=== PATIENT | male | born 1950 | race Caucasian/White ===

== ENCOUNTER 2021-10-21 18:18 | Inpatient (IN) ==
[2021-10-21] MEDS ORDERED: HYDROmorphone 2 MG/1 ML VIAL IV STA (18:46)
[2021-10-21] MEDS ORDERED: SODIUM CHLORIDE 0.9% 1,000 ML IV STA (18:46)
[2021-10-21] MEDS ORDERED: ONDANSETRON 4 MG/2 ML VIAL IV PRN (22:53)
[2021-10-22 00:27] LABS: Calcium 8.6 MG/DL (8.5-10.1); Osmolality,Calculated 280.5 MOS/KG (273-304); Potassium 4.2 MMOL/L (3.5-5.1)
[2021-10-22 00:51] LABS: Basophils % 0.2 % (0.0-0.8); Eosinophils % 0.2 % (0.00-10.9); Hematocrit 41.7 VOL% (42.0-52.0); Hemoglobin 14.1 GM/DL (14.0-18.0); Immature Granulocytes % 0.4 %; Immature Granulocytes Absolute 0.05 #; Lymphocytes # 1.4 10*3/uL (1.4-4.0); Lymphocytes % 11.3 % (21.2-54.2); Mean Corpuscular HGB Conc 33.8 GM/DL (32-36); Mean Corpuscular Volume 88.2 FL (87-102); Mean Platelet Volume 9.5 FL (9.6-12.0); Monocytes % 8.7 % (1.7-12.7); Neutrophils % 79.2 % (38.7-73.9); Platelet Count 203 T/CUMM (130-400); Red Blood Count 4.73 MC/CUMM (3.8-5.5); Red Cell Distribution Width 14.2 % (9.3-17.3); White Blood Count 12.1 T/CUMM (4-12)
[2021-10-22] MEDS: HYDROmorphone 2 MG/1 ML VIAL IV PRN ×2 (01:30→04:57)
[2021-10-22] MEDS: SODIUM CHLORIDE 0.9% 1,000 ML IV SCH (02:26)
[2021-10-22 05:29] LABS: PT Patient Result 11.7 SECS (10.5-12.0)
[2021-10-22] MEDS ORDERED: ACETAMINOPHEN 325 MG TABLET PO PRN (07:40)
[2021-10-22] MEDS ORDERED: MAGNESIUM HYDROXIDE SUSP 30 ML UDCUP PO PRN (07:40)
[2021-10-22 08:40] LABS: Basophils % 0.2 % (0.0-0.8); Eosinophils % 0.3 % (0.00-10.9); Hematocrit 41.3 VOL% (42.0-52.0); Hemoglobin 13.5 GM/DL (14.0-18.0); Immature Granulocytes % 0.5 %; Immature Granulocytes Absolute 0.06 #; Lymphocytes # 1.1 10*3/uL (1.4-4.0); Lymphocytes % 8.5 % (21.2-54.2); Mean Corpuscular HGB Conc 32.7 GM/DL (32-36); Mean Corpuscular Volume 88.8 FL (87-102); Neutrophils % 81.5 % (38.7-73.9); Platelet Count 207 T/CUMM (130-400); Red Blood Count 4.65 MC/CUMM (3.8-5.5); Red Cell Distribution Width 14.6 % (9.3-17.3); White Blood Count 12.8 T/CUMM (4-12)
[2021-10-22 09:11] LABS: Calcium 8.6 MG/DL (8.5-10.1); Osmolality,Calculated 282.3 MOS/KG (273-304); Potassium 3.9 MMOL/L (3.5-5.1)
[2021-10-22] MEDS ORDERED: fentaNYL 250 MCG/5 ML VIAL ONE (09:45)
[2021-10-22] MEDS ORDERED: propofoL 200 MG/20 ML VIAL IV ONE (09:45)
[2021-10-22] MEDS ORDERED: MIDAZOLAM 2 MG/2 ML VIAL ONE (09:45)
[2021-10-22] MEDS ORDERED: LIDOCAINE 2% 5 ML VIAL ONE (09:45)
[2021-10-22] MEDS ORDERED: ceFAZolin 2,000 MG/50 ML DUPLEX IV ONE (10:00)
[2021-10-22] MEDS: DOCUSATE SODIUM 100 MG CAPSULE PO SCH ×2 (10:05→20:17)
[2021-10-22] MEDS: TAMSULOSIN 0.4 MG CAPSULE PO SCH (10:08)
[2021-10-22] MEDS ORDERED: DEXAMETHASONE 4 MG/1 ML VIAL ONE ×2 (10:10→10:58)
[2021-10-22] MEDS ORDERED: BUPIVACAINE MPF 0.25% 30 ML VIAL ONE (10:10)
[2021-10-22] MEDS: POLYETHYLENE GLYCOL POWDER 17 GM PACK PO SCH (10:10)
[2021-10-22] MEDS ORDERED: ROCURONIUM 50 MG/5 ML VIAL IV ONE (10:58)
[2021-10-22] MEDS ORDERED: LACTATED RINGERS 1,000 ML IV ONE (10:58)
[2021-10-22] MEDS ORDERED: ONDANSETRON 4 MG/2 ML VIAL ONE (10:58)
[2021-10-22] MEDS ORDERED: SUCCINYLCHOLINE 200 MG/10 ML VIAL ONE (10:58)
[2021-10-22] MEDS ORDERED: ACETAMINOPHEN INJ 1,000 MG/100 ML VIAL IV ONE (10:58)
[2021-10-22] MEDS ORDERED: PHENYLEPHRINE 1 MG/10 ML SYRINGE IV ONE (10:59)
[2021-10-22] MEDS ORDERED: PHENYLEPHRINE 10 MG/1 ML VIAL IV ONE (11:19)
[2021-10-22] MEDS ORDERED: GLYCOPYRROLATE 0.4 MG/2 ML VIAL ONE (11:23)
[2021-10-22] MEDS ORDERED: NEOSTIGMINE 10 MG/10 ML VIAL ONE (11:24)
[2021-10-22] MEDS ORDERED: LACTULOSE 20 GM/30 ML UDCUP PO PRN (11:33)
[2021-10-22] MEDS ORDERED: diphenhydrAMINE CAP 25 MG CAPSULE PO PRN (11:33)
[2021-10-22] MEDS ORDERED: PROMETHAZINE 25 MG/1 ML VIAL IM PRN (11:33)
[2021-10-22] MEDS ORDERED: RACEPINEPHRINE 0.5 ML NEB RESP TX ONE (11:49)
[2021-10-22] MEDS ORDERED: KETOROLAC 30 MG/1 ML VIAL ONE (11:50)
[2021-10-23] MEDS: HYDROmorphone 2 MG/1 ML VIAL IV PRN ×3 (03:20→20:54)
[2021-10-23 05:25] LABS: Basophils % 0.1 % (0.0-0.8); Hematocrit 35.9 VOL% (42.0-52.0); Hemoglobin 11.7 GM/DL (14.0-18.0); Immature Granulocytes % 0.5 %; Immature Granulocytes Absolute 0.07 #; Lymphocytes # 0.9 10*3/uL (1.4-4.0); Lymphocytes % 6.9 % (21.2-54.2); Mean Corpuscular HGB Conc 32.6 GM/DL (32-36); Mean Corpuscular Volume 90.2 FL (87-102); Mean Platelet Volume 10.1 FL (9.6-12.0); Monocytes % 7.4 % (1.7-12.7); Neutrophils % 85.1 % (38.7-73.9); Platelet Count 150 T/CUMM (130-400); Red Blood Count 3.98 MC/CUMM (3.8-5.5); Red Cell Distribution Width 14.4 % (9.3-17.3); White Blood Count 12.8 T/CUMM (4-12)
[2021-10-23 05:41] LABS: Calcium 8.3 MG/DL (8.5-10.1); Osmolality,Calculated 280.5 MOS/KG (273-304); Potassium 4.1 MMOL/L (3.5-5.1)
[2021-10-23 05:42] LABS: Risk Ratio 3.16; VLDL Cholesterol 10.8 MG/DL
[2021-10-23] MEDS ORDERED: FONDAPARINUX 2.5 MG/0.5 ML SYRINGE SUBCUT SCH (06:00)
[2021-10-23] MEDS: SODIUM CHLORIDE 0.9% 1,000 ML IV SCH ×3 (07:11→20:53)
[2021-10-23] MEDS: PANTOPRAZOLE 40 MG TABLET PO SCH (08:54)
[2021-10-23] MEDS: TAMSULOSIN 0.4 MG CAPSULE PO SCH (08:54)
[2021-10-23] MEDS: POLYETHYLENE GLYCOL POWDER 17 GM PACK PO SCH (08:54)
[2021-10-23] MEDS: DOCUSATE SODIUM 100 MG CAPSULE PO SCH ×2 (08:55→20:53)
[2021-10-24] MEDS: HYDROmorphone 2 MG/1 ML VIAL IV PRN (03:29)
[2021-10-24 06:54] LABS: Basophils % 0.2 % (0.0-0.8); Eosinophils # 0.1 10*3/uL (0.0-0.87); Eosinophils % 0.5 % (0.00-10.9); Hematocrit 34.1 VOL% (42.0-52.0); Hemoglobin 11.4 GM/DL (14.0-18.0); Immature Granulocytes % 0.8 %; Immature Granulocytes Absolute 0.09 #; Lymphocytes # 2.4 10*3/uL (1.4-4.0); Lymphocytes % 21.5 % (21.2-54.2); Mean Corpuscular HGB Conc 33.4 GM/DL (32-36); Mean Corpuscular Volume 90.2 FL (87-102); Mean Platelet Volume 9.5 FL (9.6-12.0); Monocytes % 8.8 % (1.7-12.7); Neutrophils % 68.2 % (38.7-73.9); Platelet Count 162 T/CUMM (130-400); Red Blood Count 3.78 MC/CUMM (3.8-5.5); Red Cell Distribution Width 14.6 % (9.3-17.3)
[2021-10-24 07:16] LABS: Calcium 7.8 MG/DL (8.5-10.1); Potassium 3.8 MMOL/L (3.5-5.1)
[2021-10-24] MEDS ORDERED: MIDAZOLAM 2 MG/2 ML VIAL ONE (07:53)
[2021-10-24] MEDS ORDERED: fentaNYL 100 MCG/2 ML VIAL ONE (07:53)
[2021-10-24] MEDS ORDERED: PHENYLEPHRINE 1 MG/10 ML SYRINGE IV ONE (09:08)
[2021-10-24] MEDS ORDERED: ONDANSETRON 4 MG/2 ML VIAL ONE (09:08)
[2021-10-24] MEDS ORDERED: propofoL 200 MG/20 ML VIAL IV ONE (09:08)
[2021-10-24] MEDS ORDERED: SEVOFLURANE 1 UNIT/15 MINUTE INH ONE (09:08)
[2021-10-24] MEDS ORDERED: LIDOCAINE 2% 5 ML VIAL ONE (09:08)
[2021-10-24] MEDS ORDERED: LACTATED RINGERS 1,000 ML IV ONE (09:08)
[2021-10-24] MEDS ORDERED: SUCCINYLCHOLINE 200 MG/10 ML VIAL ONE (09:08)
[2021-10-24] MEDS ORDERED: FONDAPARINUX 2.5 MG/0.5 ML SYRINGE SUBCUT SCH (12:00)
[2021-10-24] MEDS: DOCUSATE SODIUM 100 MG CAPSULE PO SCH ×2 (12:54→20:55)
[2021-10-24] MEDS: PANTOPRAZOLE 40 MG TABLET PO SCH (12:54)
[2021-10-24] MEDS: POLYETHYLENE GLYCOL POWDER 17 GM PACK PO SCH (12:54)
[2021-10-24] MEDS: TAMSULOSIN 0.4 MG CAPSULE PO SCH (12:54)
[2021-10-24] MEDS: SODIUM CHLORIDE 0.9% 1,000 ML IV SCH (13:45)
[2021-10-25] MEDS: PANTOPRAZOLE 40 MG TABLET PO SCH (08:21)
[2021-10-25] MEDS: TAMSULOSIN 0.4 MG CAPSULE PO SCH (08:21)
[2021-10-25] MEDS: DOCUSATE SODIUM 100 MG CAPSULE PO SCH (08:21)
[2021-10-25] MEDS: POLYETHYLENE GLYCOL POWDER 17 GM PACK PO SCH (08:22)
[2021-10-25 08:33] LABS: Basophils % 0.4 % (0.0-0.8); Eosinophils # 0.3 10*3/uL (0.0-0.87); Hematocrit 37.2 VOL% (42.0-52.0); Immature Granulocytes % 0.7 %; Immature Granulocytes Absolute 0.06 #; Lymphocytes # 1.8 10*3/uL (1.4-4.0); Mean Corpuscular HGB Conc 32.3 GM/DL (32-36); Mean Corpuscular Volume 90.1 FL (87-102); Mean Platelet Volume 9.7 FL (9.6-12.0); Monocytes % 6.7 % (1.7-12.7); Neutrophils % 70.2 % (38.7-73.9); Platelet Count 192 T/CUMM (130-400); Red Blood Count 4.13 MC/CUMM (3.8-5.5); Red Cell Distribution Width 14.6 % (9.3-17.3); White Blood Count 9.2 T/CUMM (4-12)
[2021-10-25 08:49] LABS: Calcium 8.4 MG/DL (8.5-10.1); Osmolality,Calculated 284.1 MOS/KG (273-304); Potassium 3.6 MMOL/L (3.5-5.1)
[2021-10-25] MEDS ORDERED: ASPIRIN EC 325 MG TABLET PO SCH (09:00)
[2021-10-25 16:16] VITALS: BP 130/72
== END 2021-10-25 16:13 | DRG 481 ==
LOC: EDBD → EDUNIT# → N.ED 18:18 → N.EDINP 22:53 → SUATTDRO 22:53 → N.EDINP 10-22 01:40 → N.3E 10-22 01:59
PROVIDERS: ADMIT Internal Medicine; ATTEND Internal Medicine